=== PATIENT | female | born 1955 | race Caucasian/White ===

== ENCOUNTER 2017-04-08 20:29 | Inpatient (IN) | payer OTHER ==
--- NOTE | ~2017-04-08 | XA203 ---
[facility] A Service of [facility] & [facility] RADIOLOGY TEXT RESULTS PATIENT: CLARENCE JEROME LOCATION: [facility] 304-01 : 55 UNIT #: [id number] AGE: [address]: Fabricio Holcomb MD SEX: F ORDER DR: [id number] [facility] [address] [facility]. [place], [place] [address] [id number] I MR#: [id number] #: [id number] NAME: CLARENCE JEROME : 1955 SEX: F STUDY DATE/TIME: 04/10/2017 8:16 UNIT: [address] ROOM: [facility] STUDY DESCRIPTION: XA Thoracentesis Attending Physician: Fabricio Holcomb M.D. Ordering Physician: Maritza Arambula M.D. Primary Care Physician: Primary Care Physician No MEDICAL IMAGING REPORT This report is preliminary unless electronic signature is present EXAM Ultrasound of the right chest. HISTORY Right pleural effusion. FINDINGS Longitudinal and transverse sonograms of the chest were obtained. Examination did show ascites; however, the patient has an elevated right hemidiaphragm and does not have significant pleural fluid present. CONCLUSION 1. No significant right-sided pleural fluid. 2. Ascites. Dictated by... Trevor Lewis M.D. THIS IS AN ELECTRONICALLY VERIFIED REPORT Trevor Lewis M.D. at 04/10/2017 5:13 PM Andria TD: 04/10/2017 12:22 JOB #: [id number] MEDICAL IMAGING REPORT Page 1 of 1 COPY
--- NOTE | ~2017-04-08 | CO ---
Unit #: [id number] #: [id number] Patient: CLARENCE JEROME [id number] [address] [place], [place] [address] [id number] I MR#: [id number] NAME: CLARENCE JEROME ROOM: 304 Age: 61 Sex: F Admission Date: 04/09/2017 : 1955 Attending Physician: Fabricio Holcomb M.D. CONSULTATION REPORT HISTORY OF PRESENT ILLNESS This is a 59-year-old lady with a history of hypothyroidism, hyperlipidemia, history of coronary artery disease status post NH, had less than 50% obstruction of the stent 3 years ago. The patient is status post heart catheterization. She is now on Plavix. There was nothing to be stented. The patient presents approximately 4 days with worsening dyspnea on exertion. She has been started on IV Rocephin and azithromycin for right lower lobe pneumonia associated with effusion, this is on a plain chest x-ray. I would like to see if we can get Interventional Radiology to do a thoracentesis to drain the fluid completely and then let us get a CT scan of the chest to look for any underlying masses. The patient is continuing to smoke. She denies any significant orthopnea or paroxysmal nocturnal dyspnea and is denying any sort of chest pain or lower extremity edema prior to approximately 2 to 3 days ago. The patient has been placed on supplemental oxygen 4 L of nasal cannula. ALLERGIES The patient is allergic to penicillin. HOME MEDICATIONS Include Plavix 75 mg daily, levothyroxine 100 mcg daily, Lipitor 40 mg daily, isosorbide dinitrate 30 mg daily, and Cardizem 60 mg daily. PAST SURGICAL HISTORY Positive for hysterectomy. PAST MEDICAL HISTORY Significant for hypertension, hyperlipidemia, tobacco use, non ST-elevation NH. SOCIAL HISTORY The patient is , currently employed, smokes about 3 packs cigarettes daily. No alcohol or recreational substance use. 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 FAMILY HISTORY Noncontributory. PHYSICAL EXAMINATION VITAL SIGNS: T-current 98.3, pulse 94, respiratory rate 18, blood pressure 106/58, saturation 94% on 3 L nasal cannula. CHEST: Shows decreased breath sounds bilaterally. Slightly decreased, especially in the right lung base. Unit #: [id number] #: [id number] Patient: CLARENCE JEROME CARDIOVASCULAR: Regular rate. No gallop. ABDOMEN: Soft and nondistended. Worsened significant abdominal tenderness. EXTREMITIES: Lower extremity edema. DIAGNOSTIC STUDIES LABORATORY RESULTS: The procalcitonin is 0.22. Cardiac enzymes are negative x2. BNP is 74. Potassium 3.8, sodium 133, BUN and creatinine 16/0.9, glucose 162. Glucose Accu-Cheks has bumped up to 500. ASSESSMENT/PLAN 1. Pleural effusion. I am concerned there is some sort of a mass underneath this. We are going to ask Interventional Radiology to do a thoracentesis and we are going to get a CT scan to reveal any sort of underlying mass present. 2. Orthopnea, I believe this is due to pleural effusion. 3. Diabetes mellitus. This should be monitored very closely, as the patient's glucoses have been remarkably high this afternoon. Thank you very much for this consult and allowing us to participate in the care of this patient. Please page me at [phone] if you have any questions. Dictated by... Dino Fall/herminia TD: 04/09/2017 23:11 JOB #: [id number] CONSULTATION REPORT Page 1 of 1 X Asher Arambula MD CONSULTATION REPORT
--- NOTE | ~2017-04-08 | DS ---
Unit #: [id number] #: [id number] Patient: CLARENCE JEROME [id number] [address] [address] [id number] I MR#: [id number] NAME: CLARENCE JEROME ROOM: 304 Age: 61 Sex: F Admission Date: 04/09/2017 : 1955 Discharge Date: 04/13/2017 Attending Physician: Fabricio Holcomb M.D. Primary Care Physician: No Primary Care Physician DISCHARGE SUMMARY PRINCIPAL DISCHARGE DIAGNOSES 1. Acute hypoxic respiratory failure. 2. Right lower lobe collapse. 3. Right pleural effusion. 4. Possible postobstructive pneumonia. 5. Acute diastolic congestive heart failure. 6. Right lower lobe lung mass. 7. Multiple liver metastases and right adrenal metastasis. 8. Hypothyroidism. 9. Coronary artery disease. 10. Tobacco use. 11. Pulmonary hypertension. 12. Probable chronic obstructive pulmonary disease. 13. Hypotension. 14. Hyperglycemia. 15. Hyperlipidemia. 16. Moderate mitral regurgitation. PROCEDURE Fiberoptic bronchoscopy on 04/12/17. PROJECT STRUCTURAL ENGINEER Dr. Samano. REASON FOR HOSPITALIZATION Patient is a 61-year-old, white female with a history of coronary artery disease, hyperlipidemia, hypertension, and hypothyroidism who presented to the emergency room with shortness of air and cough. She had no chest pain or fever. She was afebrile in the emergency room and had a normal white count. Cardiac enzymes were normal. BNP was normal. Coags were normal. Random blood sugar was elevated at 167. Lactic acid was normal. Her white count was elevated at 16.2. EKG showed nonspecific ST-T abnormality. Chest x-ray was read as large right pleural effusion with right lower lung consolidation and atelectasis and the patient was admitted. HOSPITAL COURSE The patient was started on IV Solu-Medrol and IV antibiotics. Pulmonary services were consulted. Additional labs were sent. She was placed on Accu-Cheks and sliding scale insulin. She became hypotensive soon after admission. Her antihypertensives were held. She was given IV fluids. Sputum grew normal remi. Urine Legionella and streptococcal antigens were negative. Procalcitonin was 0.22. Hemoglobin A1c was 6.1%. Unit #: [id number] #: [id number] Patient: CLARENCE JEROME Patient was sent to interventional radiology for ultrasound-guided right thoracentesis. There apparently was not enough fluid for the procedure. They noted an elevated right hemidiaphragm and some ascites. Because of this, she had a CT scan of the chest, abdomen, and pelvis. CT scan of the chest showed right perihilar and right lower lobe masses with collapse of the right lower lung, moderate right pleural effusion, multiple liver mets and a right adrenal met, and there were patchy infiltrates as well. Two-dimensional was performed because of symptoms consistent with CHF, which were treated with IV Lasix. It was a technically difficult study. The EF was 50% to 55%. There was some inferior wall hypokinesis, moderate mitral regurgitation, right ventricular systolic pressure was elevated at 53 mmHg. Patient was diuresed well and improved. She underwent bronchoscopy yesterday without incident. I do not have any reports on that yet. This morning, she is on room air. She is sitting up without any symptoms. She is in a sinus rhythm. Her blood sugars have ranged from 81 to 129 over the past 24 hours. Her BMP is normal except for a CO2 of 34, random blood sugar of 120, BUN of 24. White count is 14.1. She is requesting discharge. She will need to be seen by oncology prior to discharge for followup in their office pending results of the fiberoptic bronchoscopy and, if it is negative, she will need to have further evaluation with either a CT-guided FNA of her lung mass or possibly the liver mets. Currently, she is having her room air O2 sat checked prior to discharge. Per the computer, it is 96%, but I cannot tell if this is on room air or not. Dr. Moe or one of his partners is to see her prior to discharge. Otherwise, she will be discharged home if it is okay with Dr. Samano. DISCHARGE INSTRUCTIONS 1. She will be on a healthy heart diet. 2. She is to follow up with her primary care physician, Dr. Salguero, in one week. CURRENT MEDS 1. Combivent Respimat 1 puff q.i.d. p.r.n. 2. Medrol Dosepak use as directed, dispense #1. 3. Tylenol 650 q.6 p.r.n. 4. Furosemide 40 mg p.o. b.i.d. 5. Lipitor 40 mg p.o. daily. 6. Lisinopril 2.5 mg p.o. daily. 7. Plavix 75 mg p.o. daily. 8. Potassium chloride 10 mEq p.o. b.i.d. 9. Levothyroxine 100 mcg daily. 10. Isosorbide mononitrate 30 mg p.o. daily. 11. Z-Caleb use as directed, dispense #1. 12. Omnicef 300 mg p.o. b.i.d. for an additional 6 days. Dictated by... Dino Jordan/stephy TD: 04/14/2017 13:23 JOB #: [id number] Unit #: [id number] #: [id number] Patient: CLARENCE JEROME DISCHARGE SUMMARY Page 1 of 1 X Fabricio Holcomb MD X DISCHARGE SUMMARY
--- NOTE | ~2017-04-08 | CR72 ---
[facility] A Service of [facility] RADIOLOGY TEXT RESULTS PATIENT: CLARENCE JEROME LOCATION: [facility] 304-01 : 55 UNIT #: [id number] AGE: [address]: Fabricio Holcomb MD SEX: F ORDER DR: [id number] [place] [facility]. [place], [place] [address] [id number] I MR#: [id number] Acc #: [id number] NAME: CLARENCE JEROME : 1955 SEX: F STUDY DATE/TIME: 04/12/2017 11:12 UNIT: [address] ROOM: [facility] STUDY DESCRIPTION: CR Chest Single View Portable Attending Physician: Fabricio Holcomb M.D. Ordering Physician: Maritza Arambula M.D. Primary Care Physician: No Primary Care Physician MEDICAL IMAGING REPORT This report is preliminary unless electronic signature is present EXAM Chest portable 04/12/2017 1112 hours CLINICAL HISTORY History of pneumonia and cough, post bronchial biopsy today. COMPARISON Chest CT 04/11/2017. FINDINGS Portable upright chest demonstrates low lung volumes. The cardiac, mediastinal, and hilar contours are stable. There is diffuse bilateral interstitial prominence with persistent soft tissue mass-like opacity in the right medial hilar and infrahilar region. Persistent moderately-large right effusion. There is no pneumothorax. IMPRESSION The lower lung volume film with persistent right perihilar mass-like density and moderate-sized right pleural effusion. There is mild diffuse interstitial prominence. There is no pneumothorax. Dictated by... Rosanne Chowdhury M.D. THIS IS AN ELECTRONICALLY VERIFIED REPORT Rosanne Chowdhury M.D. at 04/12/2017 2:31 PM PEDRO/karyn TD: 04/12/2017 13:29 JOB #: [id number] MEDICAL IMAGING REPORT [facility] A Service of [facility] RADIOLOGY TEXT RESULTS PATIENT: CLARENCE JEROME LOCATION: [facility] 304-01 : [birth year] UNIT #: [id number] AGE: [address]: Fabricio Holcomb MD SEX: F ORDER DR: Page 1 of 1 COPY
--- NOTE | ~2017-04-08 | CR72 ---
[facility] A Service of [facility] & [facility] RADIOLOGY TEXT RESULTS PATIENT: CLARENCE JEROME LOCATION: [facility] 304-01 : 55 UNIT #: [id number] AGE: [address]: Fabricio Holcomb MD SEX: F ORDER DR: [id number] [facility] [address] [facility]. [place], [place] [address] [id number] I MR#: [id number] Acc #: [id number] NAME: CLARENCE JEROME : 1955 SEX: F STUDY DATE/TIME: 04/08/2017 22:00 UNIT: [address] ROOM: [facility] STUDY DESCRIPTION: CR Chest Single View Portable Attending Physician: Fabricio Holcomb M.D. Ordering Physician: Dayton Schwarz D.O. Primary Care Physician: Primary Care Physician No MEDICAL IMAGING REPORT This report is preliminary unless electronic signature is present EXAM AP portable chest, 04/08/2017 HISTORY 61-year-old female in the ED complaining of 2-day history of shortness of air and cough. History of smoking. TECHNIQUE AP portable upright chest x-ray. FINDINGS The examination shows dense opacification of the lower half of the right hemithorax likely due to a combination of pleural effusion, right lung consolidation and right lower lung atelectasis. There is a somewhat bulging contour along the right hilar border which is nonspecific but could indicate hilar region mass or adenopathy. These findings are all new since the previous available chest x-ray of 08/21/2015. Consider chest CT with IV contrast for further evaluation. Left lung clear. IMPRESSION 1. Large right pleural effusion with right lower lung consolidation and atelectasis. 2. Consider chest CT examination for further evaluation as noted above. Dictated by... Russell Simmons M.D. THIS IS AN ELECTRONICALLY VERIFIED REPORT Russell Simmons M.D. at 04/09/2017 9:56 PM Marlo TD: 04/09/2017 08:21 JOB #: [id number] [facility] A Service of [facility] & [facility] RADIOLOGY TEXT RESULTS PATIENT: CLARENCE JEROME [facility] [id number] : [birth year] UNIT #: [id number] AGE: [address]: Fabricio Holcomb MD SEX: F ORDER DR: MEDICAL IMAGING REPORT Page 1 of 1 COPY
--- NOTE | ~2017-04-08 | HP ---
Unit #: [id number] #: [id number] Patient: CLARENCE JEROME [id number] [address] [place], [place] [address] [id number] I MR#: [id number] NAME: CLARENCE JEROME ROOM: 304 Age: 61 Sex: F Admission Date: 04/09/2017 : 1955 Attending Physician: Fabricio Holcomb M.D. Primary Care Physician: No Primary Care Physician HISTORY AND PHYSICAL HISTORY OF PRESENT ILLNESS 61-year-old white female smoker with a history of myocardial infarction, hypothyroidism, hyperlipidemia, admitted with three days of shortness of air and cough, hypoxemia. Apparently her CT scan showed a right lower lobe pneumonia associated with an effusion and possible mass but I don't have any reports handwritten or otherwise in the computer. She has been started on IV Rocephin and Zithromax. She has been allergic and admitted. Currently, she is on supplemental oxygen at 4 L with an O2 sat of 94% to 95%. Her other lab work is fairly unremarkable other than a random elevated blood sugar and white count with a normal lactic acid and cardiac enzymes. Currently, she is resting well. She denies any chest pain or fever at home. Apparently, she is to be Dr. Salguero's patient but has not seen him yet and apparently her insurance has not covered her previous physicians in any case. ALLERGIES Penicillin. MEDICATIONS Meds prior to admission: 1. Plavix 75 mg daily. 2. Levothyroxine 100 mcg daily. 3. Lipitor 40 mg daily. 4. Isosorbide dinitrate 30 mg daily. 5. Lisinopril 2.5 mg daily. 6. Cardizem 60 mg daily. SURGICAL HISTORY Hysterectomy. PAST MEDICAL HISTORY 1. Hypertension. 2. Hyperlipidemia. 3. Tobacco use. 4. Non-ST elevation [place]. SOCIAL HISTORY , employed at a nearby restaurant. Smokes three packs of cigarettes daily. No alcohol or street drug use. FAMILY HISTORY Noncontributory. PHYSICAL EXAMINATION Unit #: [id number] #: [id number] Patient: CLARENCE JEROME GENERAL: She is awake, alert, oriented x3, in no acute distress. VITAL SIGNS: Afebrile since admission with a T max of 99.6, pulse is 83, respirations 16, blood pressure 103/70 which it dropped to 81/54 during the night. Again, her O2 sat was 86% on room air, 92% on 2 L, 94% on 4 L. HEENT: Unremarkable except for nasal cannula in place. NECK: Supple without JVD, bruits, adenopathy or thyromegaly. CHEST: Diffusely decreased breath sounds with a few rhonchi on the right but no expiratory wheezes heard. HEART: Regular rate and rhythm without any murmurs, rubs or gallops. ABDOMEN: Soft, nondistended, nontender with positive bowel sounds and no hepatosplenomegaly. EXTREMITIES: No clubbing, cyanosis or edema. /RECTAL: Deferred. NEUROLOGICAL: Grossly intact. DIAGNOSTIC STUDIES LABORATORY: Cardiac enzymes normal x2 sets. BNP 84. PT/INR 1.1, PTT 32. CMP normal except for a sodium of 133, random blood sugar 167 and albumin 3.1. Lactic acid was normal at 1.7, white count was elevated at 16.2 with a left shift. Hemoglobin is 12.3. Platelets 456,000. On 3.5 L per minute, her pH is 7.461, pCO2 is 39, pAO2 is 62. CARDIOVASCULAR: EKG - normal sinus rhythm, nonspecific ST-T abnormality. IMAGING: Chest x-ray and CT scan - no reports handwritten or in the computer otherwise. IMPRESSION 1. Community-acquired pneumonia with an effusion and a questionable mass. 2. Coronary artery disease. 3. Hyperlipidemia. 4. Hypotension. 5. Tobacco use. 6. Hypothyroidism. 7. Hyperglycemia. PLAN Review CT scan, IV Zithromax and Rocephin. DVT prophylaxis with Lovenox. Hold antihypertensives. Hydrate with normal saline. Accu-Cheks a.c. and h.s. Low dose sliding scale insulin. Mini nebs. Procalcitonin. Urine for Streptococcal and legionella antigen. Sputum gram stain and C and S. Pulmonary consult. Duo-Nebs per unit dose four times daily. Tobacco abstinence discussed with patient. Further evaluation pending results of the above. Dictated by Fabricio Holcomb M.D. SHIVANI/harsh TD: 04/09/2017 08:23 Unit #: [id number] #: [id number] Patient: CLARENCE JEROME JOB #: [id number] HISTORY AND PHYSICAL Page 1 of 1 X Fabricio Holcomb MD X HISTORY AND PHYSICAL
--- NOTE | ~2017-04-08 | CO ---
Unit #: [id number] #: [id number] Patient: CLARENCE JEROME [id number] [address] [place], [place] [address] [id number] I MR#: [id number] NAME: CLARENCE JEROME ROOM: 304 Age: 61 Sex: F Admission Date: 04/09/2017 : 1955 Attending Physician: Fabricio Holocmb M.D. Primary Care Physician: No Primary Care Physician CONSULTATION REPORT REASON FOR CONSULTATION Small cell widespread disease in the liver. HISTORY OF PRESENT ILLNESS This is a 61-year-old female who had been smoking three packs per day for more than 40 years. She has a total [id number] history of smoking. She came due to one-week history of shortness of breath, dyspnea on exertion. Patient also has significant change in her color of the skin. CT of the chest on 04/11/2017 showed a 2.2 cm subcarinal lymph node. There was some right hilar mass. However, patient has widespread disease in the liver. The largest lesion is almost 6.5 cm. Patient had a bronchoscopy. I status spoke to the pathologist. It is a small cell lung cancer. Today she wants to go home. CBC showed WBC 14.0, hemoglobin 12.5, platelets 489. Creatinine is 0.9. Her sodium is 140. REVIEW OF SYSTEMS CONSTITUTIONAL: No fever, no chills, no sweats, no weight loss. EYES: No visual symptoms. EARS, NOSE AND THROAT: There is no runny nose or sore throat or difficulty hearing. CARDIOVASCULAR: No chest pain. No shortness of breath. No palpitations. No orthopnea. No PND. RESPIRATORY: as mentioned above. GASTROINTESTINAL: No nausea, vomiting, diarrhea, constipation, hematochezia or melena. GENITOURINARY: No urinary frequency, hesitancy or urgency. No blood in the urine. MUSCULOSKELETAL: No muscle or joint pain. NEUROLOGIC: No headache. No numbness or tingling. No weakness. No seizure. PSYCHIATRIC: No anxiety, depression or mood disturbance. ENDOCRINE: No excessive urination or thirst. DERMATOLOGIC: No rash. ALLERGIC/IMMUNOLOGIC: No symptoms. HEMATOLOGIC/LYMPHATIC: Denies any symptoms. PAST MEDICAL HISTORY Newly diagnosed small cell lung cancer stage IV, metastatic disease to the Unit #: [id number] #: [id number] Patient: CLARENCE JEROME liver, CT, COPD, hypertension. ALLERGIES Penicillin. SOCIAL HISTORY As mentioned above has more than 120 pack-years of smoking, denies alcohol; used to cook in a restaurant. PAST SURGICAL HISTORY Hysterectomy. FAMILY HISTORY Her father had cancer, daughter also of cancer at a young age. PHYSICAL EXAMINATION VITAL SIGNS: Afebrile, pulse 105, respiratory rate 18, O2 sat on 3 L 98%, blood pressure 102/66. GENERAL: Patient is comfortable. ECOG is 0. The patient is pleasant. HEENT: Moist mucosa. Pupils equally reactive to light. Extraocular muscles intact. Sclerae anicteric. No obvious bleeding from nasal mucosa or oral mucosa. Scalp normal. Hearing normal. NECK: No JVD. No lymphadenopathy. LYMPHATIC/HEMATOLOGIC: There is no palpable adenopathy in the neck, axilla or inguinal area. CARDIOVASCULAR: S1, S2. Regular rate and rhythm. No S3 or S4. RESPIRATORY: Chest symmetrical, normal. Clear to auscultation bilaterally. No wheezes, no rales, no rhonchi. No dullness to percussion. ABDOMEN/GASTROINTESTINAL: Abdomen is soft, nontender, nondistended. No hepatosplenomegaly. EXTREMITIES: There is no clubbing, no cyanosis, no edema. No varicose veins. NEUROLOGICAL: Patient is alert, awake and oriented x3. Cranial nerves II-XII are intact. Sensory grossly intact. Motor is 4/5 in all four extremities. Gait is normal. Station is normal. Language is normal. Memory is normal. DTRs +2 in all four extremities. MUSCULOSKELETAL: No joint swelling. No bony tenderness. No muscle tenderness. SKIN: No petechiae, no rash, no ecchymosis. PSYCHIATRIC: No anxiety. No delusions or hallucinations. There is no agitation. Eye contact is normal. Affect is appropriate. There is no flight of ideas. DIAGNOSTIC STUDIES PATHOLOGY: As mentioned above. IMAGING: CT scan as mentioned above. LABORATORY: Labs as mentioned above. ASSESSMENT This is a 61-year-old female who has a small-cell lung cancer; patient with widespread disease in the liver. DISCUSSION I had an extensive discussion with the patient. I also talked to the pathologist. It is a small cell. Patient wants to go home today. Unit #: [id number] #: [id number] Patient: CLARENCE JEROME I will follow the patient as an outpatient. I will get PET scan as well as MRI of the brain. She is going to see me with her on Sunday. Dictated by... Dino Ratliff/russ TD: 04/13/2017 15:54 JOB #: [id number] CONSULTATION REPORT Page 1 of 1 X Ravi Quinn MD X CONSULTATION REPORT
--- NOTE | ~2017-04-08 | EKG ---
PATIENT: CLARENCE JEROME UNIT #: [id number] Ventricular Rate: 93 BPM Atrial Rate: 93 BPM P-R Interval: 140 ms QRS Duration: 74 ms Q-T Interval: 432 ms QTC Calculation(Bezet): 537 ms P [place]: 62 degrees Calculated R [place]: 85 degrees Calculated T [place]: 65 degrees Diagnosis Line: Normal sinus rhythm Diagnosis Line: Nonspecific T wave abnormality Diagnosis Line: Abnormal ECG Diagnosis Line: When compared with ECG of 22-AUG-2015 07:11, Diagnosis Line: Nonspecific T wave abnormality now evident in Diagnosis Line: Inferior leads Diagnosis Line: Nonspecific T wave abnormality now evident in Diagnosis Line: Anterolateral leads Diagnosis Line: QT has lengthened Diagnosis Line: Confirmed by BAHMAN DILLON MD ([id number]) on Diagnosis Line: 04/09/2017 10:41:47 PM INTERPRETING MD: KENDELL
--- NOTE | ~2017-04-08 | CT57 ---
[facility] A Service of [facility] & [facility] RADIOLOGY TEXT RESULTS PATIENT: CLARENCE JEROME LOCATION: [facility] 304-01 : 55 UNIT #: [id number] AGE: [address]: Fabricio Holcomb MD SEX: F ORDER DR: [id number] [facility] [address] [facility]. [place], [place] [address] [id number] I MR#: [id number] Acc #: [id number] NAME: CLARENCE JEROME : 1955 SEX: F STUDY DATE/TIME: 04/11/2017 10:09 UNIT: [address] ROOM: 304 STUDY DESCRIPTION: CT Chest Wo Cont Attending Physician: Fabricio Holocmb M.D. Ordering Physician: Maritza Arambula M.D. Primary Care Physician: No Primary Care Physician MEDICAL IMAGING REPORT This report is preliminary unless electronic signature is present EXAM CT chest without contrast. HISTORY Cough and shortness of air for [address] exam was performed with one or more of the following radiation dose reduction techniques: automatic exposure control, adjustment of mA and/or kV according to patient size, and iterative reconstruction. FINDINGS CT chest without contrast demonstrates a moderately large right pleural effusion, likely containing debris. Indistinct mixed density, partly hypodense mass is suspected along the right hilum and in the right lower lobe, evaluation which is limited by the lack of IV contrast and due to complete atelectasis of the right lower lobe and partial right perihilar atelectasis, as well. Adenopathy in the subcarinal space extending to the azygoesophageal recess, measuring approximate 2.2 cm. Low-density hepatic masses, measuring 7.3 cm at the junction of the medial and lateral segments, left hepatic lobe, 1.8 cm and 1.8 cm in the left hepatic lobe, and 2 cm in the superolateral right hepatic lobe. Right adrenal enlargement measuring 3 cm x 2.1 cm. Findings are concerning for hepatic and right adrenal metastases. The findings in the right lung and mediastinum are concerning for right lung carcinoma with metastatic adenopathy. Consider bronchoscopy for further evaluation. Subsegmental infiltrates and atelectasis in both lungs, greater in the anterior and superior left upper lobe. IMPRESSION 1. Findings are concerning for metastatic disease in the chest and upper abdomen. Indistinct probable low-density right perihilar and right lower lobe masses raising concern for right lung carcinoma, STS. [facility] A Service of [facility] & [facility] RADIOLOGY TEXT RESULTS PATIENT: CLARENCE JEROME LOCATION: [facility] 304-01 : 55 UNIT #: [id number] AGE: [address]: Fabricio Holcomb MD SEX: F ORDER DR: evaluation of which is limited by complete atelectasis of the right lower lobe and lack of IV contrast. Subtle probable hypodense mass or adenopathy adjacent to the right hilum and in the right lower lobe. Consider further evaluation with bronchoscopy. 2. Moderately large right pleural effusion and small left pleural effusion. 3. Subcarinal adenopathy, multiple hepatic masses measuring up to 7.3 cm, and right adrenal enlargement measuring up to 3.0 cm, are concerning for meggan, hepatic and right adrenal metastases. 4. Small left pleural effusion. 5. Patchy multifocal bilateral subsegmental atelectasis or infiltrates in both lungs. Dictated by... Aman Rader M.D. THIS IS AN ELECTRONICALLY VERIFIED REPORT Aman Rader M.D. at 04/11/2017 5:30 PM HENRI/tammi TD: 04/11/2017 16:57 JOB #: [id number] MEDICAL IMAGING REPORT Page 1 of 1 COPY
--- NOTE | ~2017-04-08 | OR ---
Unit #: [id number] #: [id number] Patient: CLARENCE JEROME [id number] [address] [place], [place] [address] [id number] I MR#: [id number] NAME: CLARENCE JEROME ROOM: 304 Date of Procedure: 04/12/2017 Admission Date: 04/09/2017 Surgeon: Maritza Arambula M.D. : 1955 Attending Physician: Fabricio Holcomb M.D. Primary Care Physician: Primary Care Physician No OPERATIVE REPORT PROCEDURE PERFORMED Bronchoscopy, bronchial wash, endobronchial biopsies. ANESTHESIA Per anesthesiology. DESCRIPTION OF PROCEDURE After obtaining informed consent, bronchoscope was passed oropharyngeally. 2% Xylocaine, 1% Xylocaine, and benzocaine spray were used in the posterior oropharynx. The vocal cords seemed to have some irritation and ulceration, they moved midline symmetrically. The patient had some transient hypoxia, which resolved. Bronchoscope was then passed into the trachea. The left side was briefly seen and there was no evidence of any endobronchial lesions in the left lingular, left upper, left lower lobe. The right upper lobe did show changes of severe acute bronchitis; however, there were no endobronchial lesions. The right middle and right lower lobes showed evidence of endobronchial infiltration. There was a mass in the right lower lobe with significant edema, erythema, swelling, neovascularization of the airways. Biopsies were taken of this tissue x4. There was oozing present. Estimated blood loss was minimal. However, fluoro was used to make sure that we were still endobronchial when I do a transbronchial biopsy. The patient tolerated the procedure well. There were no acute complications. There were no limitations. SAMPLES Endobronchial biopsies as well as some bronchial washing. Thank you very much. Please page me at [phone] if you have any questions. Dictated by... Dino Fall/herminia TD: 04/13/2017 02:02 JOB #: [id number] Unit #: [id number] #: [id number] Patient: CLARENCE JEROME OPERATIVE REPORT Page 1 of 1 X Asher Arambula MD PROCEDURE OPERATIVE NOTE
--- NOTE | ~2017-04-08 | CT2 ---
[facility] A Service of [facility] RADIOLOGY TEXT RESULTS PATIENT: CLARENCE JEROME LOCATION: [facility] 304-01 : 55 UNIT #: [id number] AGE: [address]: Fabricio Holcomb MD SEX: F ORDER DR: [id number] [id number] [facility]. [place], [place] [address] [id number] I MR#: [id number] Acc #: [id number] NAME: CLARENCE JEROME : 1955 SEX: F STUDY DATE/TIME: 04/11/2017 7:27 UNIT: [address] ROOM: [facility] STUDY DESCRIPTION: CT Abd and Pelv W Cont Attending Physician: Fabricio Holcomb M.D. Ordering Physician: Fabricio Holcomb M.D. Primary Care Physician: No Primary Care Physician MEDICAL IMAGING REPORT This report is preliminary unless electronic signature is present EXAM CT abdomen and pelvis with contrast. INDICATION Shortness of air and cough since April 08, 2017. Abdominal ascites and generalized abdominal pain since 04/08/17. PROCEDURE Contrast-enhanced CT of the abdomen and pelvis. This CT exam was performed with one or more of the following radiation dose reduction techniques: automatic exposure control, adjustment of mA and/or kV according to patient size, and iterative reconstruction. COMPARISON None. FINDINGS Refer to the separately dictated chest CT for thoracic findings. ABDOMEN WITH CONTRAST: There are a few hepatic metastases in the liver, the largest is at the junction of segments 2 and 4A, and measures up to 6.5 cm. The spleen, kidneys, right adrenal enlargement measuring 4.0 x 1.8 cm. Unremarkable pancreas. There is a 2.3 cm stone in the gallbladder, but no evidence for inflammation. A few mildly prominent gastroesophageal lymph nodes. Moderate to moderately large colonic stool burden. Uncomplicated sigmoid diverticula. No retroperitoneal adenopathy. PELVIS WITH CONTRAST: Small amount of fluid in the pelvis. Previous hysterectomy. No aggressive-appearing bone lesion. IMPRESSION [facility] A Service of [facility] RADIOLOGY TEXT RESULTS PATIENT: CLARENCE JEROME LOCATION: [facility] 304-01 : 55 UNIT #: [id number] AGE: [address]: Fabricio Holcomb MD SEX: F ORDER DR: Refer to the separately dictated chest CT for thoracic findings including details regarding the partially included right hilar and infrahilar mass. Metastatic disease in the liver with the largest lesion measuring up to 6.5 cm. Right adrenal metastasis. Other findings as above. Dictated by... Sean Owen M.D. THIS IS AN ELECTRONICALLY VERIFIED REPORT Sean Owen M.D. at 04/12/2017 2:17 PM JULES/josr TD: 04/11/2017 17:25 JOB #: [id number] MEDICAL IMAGING REPORT Page 1 of 1 COPY
[~2017-04-08 20:29] MED LIST: ACETAMINOPHEN PR; ASPIRIN81 M2 PO; CARDIZEM60 M1 PO; ISOSORBIDE DINI30 MG PO; LIPITOR40 MG DOB; LORTAB 5/500 TA1 TA1 PO; NICODERM C1 PATCH .1 TD; NITROGLYCERIN0.4 MG SL; NO MEDICATIONS; PLAVIX PO; PREDNISONE PO; PRINIVIL20 M1 PO; ROBAXIN500 MG PO; SYNTHROID75 MCG PO
[2017-04-08 21:42] LABS: POC - CKMB 1.2 ng/mL (0.0-7.9); POC - TROPONIN <0.05 ng/mL (<=0.05)
[2017-04-08 21:59] LABS: ARTERIAL BLD GAS O2 SATURATION 93.1 % (90.0-100.0); ARTERIAL BLOOD GAS ALLEN TEST NORMAL; ARTERIAL BLOOD GAS ART SITE RIGHT RADIAL; ARTERIAL BLOOD GAS CARBOXY HB 5.4 %sat (0.0-9.0); ARTERIAL BLOOD GAS DELIVERY NASAL CANNULA; ARTERIAL BLOOD GAS LITER FLOW 3.5; ARTERIAL BLOOD GAS MET HB 1.1 %sat (0.0-2.0); ARTERIAL BLOOD GAS PCO2 39.3 mmHg (35.0-45.0); ARTERIAL BLOOD GAS PO2 62.1 mmHg (80.0-100); ARTERIAL BLOOD GAS pH 7.461 (7.350-7.450); ARTERIAL DRAW? YES
[2017-04-08 22:13] LABS: BASOPHIL# 0.1 X10e3 (0-0.3); BASOPHIL% 0.7 % (0-2.5); EOSINOPHIL% 0.1 % (0.0-7.0); HEMATOCRIT 37.6 % (35.0-45.0); HEMOGLOBIN 12.3 gm/dL (12.0-16.0); LYMPHOCYTE# 1.2 X10e3 (1.0-3.5); LYMPHOCYTE% 7.1 % (17.0-45.0); MEAN CELL VOLUME 85.8 FL (83-96); MEAN CORPUSCULAR HEMOGLOBIN 28.1 PG (28-34); MEAN CORPUSCULAR HGB CONC 32.8 g/dL (30-36); MEAN PLATELET VOLUME 8.1 FL (6.5-11.5); MONOCYTE# 1.2 X10e3 (0-1.0); MONOCYTE% 7.6 % (3.0-12.0); NEUTROPHIL# 13.7 X10e3 (1.5-7.1); NEUTROPHIL% 84.5 % (40-75); PLATELET COUNT 456 X10e3 (140-420); RED BLOOD COUNT 4.39 X10e (3.90-5.30); RED CELL DISTRIBUTION WIDTH 16.8 % (11.0-15.5); WHITE BLOOD COUNT 16.2 X10e3 (4.0-10.5)
[2017-04-08 22:16] LABS: DIFF IND YES
[2017-04-08 22:34] LABS: PLATELET ESTIMATE INCREASED (NORMAL)
[2017-04-08 22:35] LABS: ANISOCYTOSIS MOD
[2017-04-09 01:21] LABS: ALBUMIN SERUM 3.1 g/dL (3.5-5.0); BILIRUBIN, DIRECT 0.2 mg/dL (0.0-0.2); BILIRUBIN,INDIRECT 0.7 mg/dL (0.0-0.9); BILIRUBIN,TOTAL 0.9 mg/dL (0.2-2.0); BUN/CREATININE RATIO 17.77; CALCIUM SERUM 8.4 mg/dL (8.4-10.2); CREATININE SERUM 0.9 mg/dL (0.6-1.4); GLOM FILT RATE Estimated 69.1 mL/min (>60); POTASSIUM 3.8 mmol/L (3.5-5.1); PROTEIN TOTAL SERUM 7.9 g/dL (6.0-8.3)
[2017-04-09 01:26] LABS: INR 1.1; PROTHROMBIN TIME (PATIENT) 11.8 SECONDS (9.6-11.5)
[2017-04-09] MEDS ORDERED: CLOPIDOGREL75 MG PO (01:55)
[2017-04-09] MEDS ORDERED: LISINOPRIL2.5 MG PO (01:56)
[2017-04-09] MEDS ORDERED: LIPITOR40 MG PO (01:56)
[2017-04-09] MEDS ORDERED: LEVOTHYROXINE100 MC1 PO (01:56)
[2017-04-09] MEDS ORDERED: ISOSORBIDE DINI30 MG PO (01:56)
[2017-04-09] MEDS ORDERED: CARDIZEM60 MG PO (01:57)
[2017-04-09 02:18] LABS: POC - CKMB <1.0 ng/mL (0.0-7.9); POC - TROPONIN <0.05 ng/mL (<=0.05)
[2017-04-10 05:04] LABS: HEMATOCRIT 32.3 % (35.0-45.0); HEMOGLOBIN 10.2 gm/dL (12.0-16.0); MEAN CELL VOLUME 86.5 FL (83-96); MEAN CORPUSCULAR HEMOGLOBIN 27.3 PG (28-34); MEAN CORPUSCULAR HGB CONC 31.6 g/dL (30-36); MEAN PLATELET VOLUME 7.4 FL (6.5-11.5); RED BLOOD COUNT 3.74 X10e (3.90-5.30); RED CELL DISTRIBUTION WIDTH 17.1 % (11.0-15.5); WHITE BLOOD COUNT 18.7 X10e3 (4.0-10.5)
[2017-04-10 06:01] LABS: LEGIONELLA AG URINE NEG (NEG)
[2017-04-10 06:04] LABS: BUN/CREATININE RATIO 17.14; CALCIUM SERUM 8.1 mg/dL (8.4-10.2); CREATININE SERUM 0.7 mg/dL (0.6-1.4); GLOM FILT RATE Estimated 93.5 mL/min (>60); POTASSIUM 4.1 mmol/L (3.5-5.1)
[2017-04-11 05:57] LABS: HEMATOCRIT 32.9 % (35.0-45.0); HEMOGLOBIN 10.7 gm/dL (12.0-16.0); MEAN CELL VOLUME 86.4 FL (83-96); MEAN CORPUSCULAR HGB CONC 32.4 g/dL (30-36); MEAN PLATELET VOLUME 7.2 FL (6.5-11.5); RED BLOOD COUNT 3.81 X10e (3.90-5.30); RED CELL DISTRIBUTION WIDTH 16.9 % (11.0-15.5); WHITE BLOOD COUNT 17.3 X10e3 (4.0-10.5)
[2017-04-11 07:53] LABS: THYROID STIMULATING HORMONE 19.11 uIU/ml (0.34-5.60)
[2017-04-11 08:00] LABS: FREE THYROXIN (T4) 0.24 ng/dL (0.58-1.64)
[2017-04-12 05:42] LABS: HEMOGLOBIN 11.5 gm/dL (12.0-16.0); MEAN CELL VOLUME 85.5 FL (83-96); MEAN CORPUSCULAR HEMOGLOBIN 27.2 PG (28-34); MEAN CORPUSCULAR HGB CONC 31.9 g/dL (30-36); MEAN PLATELET VOLUME 7.2 FL (6.5-11.5); RED BLOOD COUNT 4.21 X10e (3.90-5.30); RED CELL DISTRIBUTION WIDTH 16.4 % (11.0-15.5); WHITE BLOOD COUNT 13.6 X10e3 (4.0-10.5)
[2017-04-12 06:12] LABS: PARTIAL THROMBOPLASTIN TIME 26.1 SECONDS (23.5-31.3); PROTHROMBIN TIME (PATIENT) 10.5 SECONDS (9.6-11.5)
[2017-04-12 09:12] LABS: BUN/CREATININE RATIO 23.75; CALCIUM SERUM 8.2 mg/dL (8.4-10.2); CREATININE SERUM 0.8 mg/dL (0.6-1.4); GLOM FILT RATE Estimated 79.6 mL/min (>60); MAGNESIUM 2.2 mg/dL (1.6-3.0)
[2017-04-13 05:46] LABS: HEMATOCRIT 39.4 % (35.0-45.0); HEMOGLOBIN 12.5 gm/dL (12.0-16.0); MEAN CELL VOLUME 86.1 FL (83-96); MEAN CORPUSCULAR HEMOGLOBIN 27.4 PG (28-34); MEAN CORPUSCULAR HGB CONC 31.9 g/dL (30-36); MEAN PLATELET VOLUME 7.5 FL (6.5-11.5); RED BLOOD COUNT 4.57 X10e (3.90-5.30); RED CELL DISTRIBUTION WIDTH 16.4 % (11.0-15.5); WHITE BLOOD COUNT 14.1 X10e3 (4.0-10.5)
[2017-04-13 06:05] LABS: BUN/CREATININE RATIO 26.66; CALCIUM SERUM 8.5 mg/dL (8.4-10.2); CREATININE SERUM 0.9 mg/dL (0.6-1.4); GLOM FILT RATE Estimated 69.1 mL/min (>60); POTASSIUM 4.4 mmol/L (3.5-5.1)
[2017-04-13] MEDS ORDERED: COMBIVENT RESPIM4 GM INH (07:33)
[2017-04-13] MEDS ORDERED: ACETAMINOPHEN650 M4 PO (07:35)
[2017-04-13] MEDS ORDERED: LASIX PO (07:37)
[2017-04-13] MEDS ORDERED: K-DUR10 MEQ PO (07:42)
[2017-04-13] MEDS ORDERED: Z-PACK (07:45)
[2017-04-13] MEDS ORDERED: OMNICEF PO (07:45)
[2017-04-13] MEDS ORDERED: LEVOTHYROXINE100 MCG PO (07:46)
== END 2017-04-13 14:43 | disposition home or self-care (01) | DRG 166 ==
LOC: CED 20:29 → CEDOF 04-09 00:30 → C3A PCU 04-09 00:30 → CED 04-09 02:01 → CEDOF 04-09 02:01 → C3A PCU 04-09 07:45
PROVIDERS: Emergency Medicine; Internal Medicine; Internal Medicine Pulmonary Disease
PROC: 0BBF8ZX Excision of Right Lower Lung Lobe, Via Natural or Artificial Opening Endoscopic, Diagnostic (ICD-10-PCS; principal; 2017-04-12 10:30)
DX: J96.01 Acute respiratory failure with hypoxia (principal); I50.31 Acute diastolic (congestive) heart failure; J18.9 Pneumonia, unspecified organism; C78.7 Secondary malignant neoplasm of liver and intrahepatic bile duct; C79.71 Secondary malignant neoplasm of right adrenal gland; I95.9 Hypotension, unspecified; I11.0 Hypertensive heart disease with heart failure; J44.0 Chronic obstructive pulmonary disease with (acute) lower respiratory infection; R18.8 Other ascites; J20.9 Acute bronchitis, unspecified; R91.8 Other nonspecific abnormal finding of lung field; E03.9 Hypothyroidism, unspecified; Z88.0 Allergy status to penicillin; I10 Essential (primary) hypertension; I27.2 Other secondary pulmonary hypertension; F17.210 Nicotine dependence, cigarettes, uncomplicated; I34.0 Nonrheumatic mitral (valve) insufficiency; E78.5 Hyperlipidemia, unspecified; E11.65 Type 2 diabetes mellitus with hyperglycemia; I25.10 Atherosclerotic heart disease of native coronary artery without angina pectoris; Z95.5 Presence of coronary angioplasty implant and graft
CPT/HCPCS: 36415; 36600; 71010; 71250; 74177; 76000; 80048; 80076; 82308; 82553; 82803; 82947; 83036; 83605; 83735; 83880; 84439; 84443; 84484; 85025; 85027; 85610; 85730; 87040; 87070; 87102; 87106; 87116; 87205; 87206; 87449; 87899; 88108; 88305; 93005; 93306; 94640; 94760; 96374; 99285; J0171; J0456; J0696; J1650; J1815; J1940; J2250; J2920; J2930; Q9967

== ENCOUNTER → 2017-04-19 | Outpatient (CLI) | payer OTHER ==
[~2017-04-19] MED LIST changes: +ACETAMINOPHEN650 M4 PO; +CARDIZEM60 MG PO; +CLOPIDOGREL75 MG PO; +COMBIVENT RESPIM4 GM INH; +K-DUR10 MEQ PO; +LASIX PO; +LEVOTHYROXINE100 MC1 PO; +LEVOTHYROXINE100 MCG PO; +LIPITOR40 MG PO; +LISINOPRIL2.5 MG PO; +OMNICEF PO; +Z-PACK
--- NOTE | ~2017-04-19 | MR17 ---
[facility] A Service of [facility] & [facility] RADIOLOGY TEXT RESULTS PATIENT: CLARENCE JEROME LOCATION: [facility] : 55 UNIT #: [id number] AGE: [address]: Ravi Quinn MD SEX: F ORDER DR: [id number] [address] [address] [id number] P MR#: [id number] Acc #: [id number] NAME: CLARENCE JEROME : 1955 SEX: F STUDY DATE/TIME: 04/19/2017 14:41 UNIT: [facility] ROOM: STUDY DESCRIPTION: MR Brain WWo Contrast Attending Physician: Ravi Quinn M.D. Ordering Physician: Ravi Quinn M.D. Primary Care Physician: Primary Care Physician No MRI CENTER REPORT This report is preliminary unless electronic signature is present. EXAM Brain MRI with and without contrast HISTORY Newly diagnosed lung cancer. Headaches of recent onset. Evaluate for brain malignancy suspected. TECHNIQUE Multiplanar imaging of the brain was performed with and without contrast. 13 mL of MultiHance was used. FINDINGS On diffusion weighted imaging, there is no evidence of recent infarct. The routine brain images show mild chronic ischemic changes in the periventricular deep white matter bilaterally. There is no significant vasogenic edema seen. Postcontrast imaging shows 3 small enhancing lesions strongly suspicious for metastatic disease in the posterior fossa. There is a 4 mm lesion in the inferior aspect of the left cerebellar tonsil, there is a 9 mm enhancing lesion in the right inferior cerebellum and there is a 3 mm enhancing lesion in the right superior cerebellum adjacent to midline. There is an additional small focus of enhancement measuring 2-3 mm in diameter in the right frontal subcortex adjacent to the falx. All of these lesions are consistent with metastasis. No hemorrhages are seen. Extraaxial structures are unremarkable. IMPRESSION 1. There are 4 enhancing lesions strongly suspicious for metastatic disease. The largest of which is in the right cerebellum measuring 8-9 mm in diameter. Three out of the 4 lesions are in the cerebellum. 2. Mild chronic ischemic changes around the ventricles bilaterally. STS. [facility] A Service of [facility] & [facility] RADIOLOGY TEXT RESULTS PATIENT: CLARENCE JEROME LOCATION: [facility] : 55 UNIT #: [id number] AGE: [address]: Ravi Quinn MD SEX: F ORDER DR: Dictated by... Cheikh Torres M.D. THIS IS AN ELECTRONICALLY VERIFIED REPORT Cheikh Torres M.D. at 04/20/2017 3:52 PM ROSA/margareth TD: 04/20/2017 10:39 JOB #: [id number] MRI CENTER REPORT Page 1 of 1
== END | disposition home or self-care (01) ==
LOC: SMRI 07:32
DX: C34.01 Malignant neoplasm of right main bronchus (principal); G93.9 Disorder of brain, unspecified
CPT/HCPCS: 70553; A9581

== ENCOUNTER → 2017-04-27 | Outpatient (CLI) | payer OTHER ==
[2017-04-27 07:23] LABS: HEMATOCRIT 39.9 % (35.0-45.0); HEMOGLOBIN 12.9 gm/dL (12.0-16.0); MEAN CELL VOLUME 86.8 FL (83-96); MEAN CORPUSCULAR HEMOGLOBIN 28.2 PG (28-34); MEAN CORPUSCULAR HGB CONC 32.5 g/dL (30-36); MEAN PLATELET VOLUME 6.9 FL (6.5-11.5); RED BLOOD COUNT 4.59 X10e (3.90-5.30); RED CELL DISTRIBUTION WIDTH 17.3 % (11.0-15.5); WHITE BLOOD COUNT 10.6 X10e3 (4.0-10.5)
[2017-04-27 07:43] LABS: PARTIAL THROMBOPLASTIN TIME 32.5 SECONDS (23.5-31.3); PROTHROMBIN TIME (PATIENT) 10.5 SECONDS (10.0-11.7)
== END | disposition home or self-care (01) ==
LOC: CIVR 06:50
PROVIDERS: Internal Medicine Hematology
DX: C34.01 Malignant neoplasm of right main bronchus (principal)
CPT/HCPCS: 36415; 85027; 85610; 85730; J1642; J2250; J3010

== ENCOUNTER → 2017-05-04 | Outpatient (CLI) | payer OTHER ==
--- NOTE | ~2017-05-04 | XA91 ---
[facility] A Service of [facility] & [facility] RADIOLOGY TEXT RESULTS PATIENT: CLARENCE JEROME LOCATION: [facility] : 55 UNIT #: [id number] AGE: [address]: Ravi Quinn MD SEX: F ORDER DR: [id number] [facility] [address] [facility]. [place], [place] [address] [id number] O MR#: [id number] Acc #: [id number] NAME: CLARENCE JEROME : 1955 SEX: F STUDY DATE/TIME: 05/04/2017 10:28 UNIT: [facility] ROOM: STUDY DESCRIPTION: XA CVC Tunneled W Port Attending Physician: Ravi Quinn M.D. Referring Physician: Ravi Quinn M.D. Ordering Physician: Ravi Quinn M.D. Primary Care Physician: Cheikh Salguero M.D. MEDICAL IMAGING REPORT This report is preliminary unless electronic signature is present EXAM MediPort placement INDICATION Metastatic lung cancer. PROCEDURE The procedure was explained to the patient including risks, benefits, potential complications, and potential for alternatives forms of treatment. Informed consent was obtained and prior to initiating the procedure, a formal time-out procedure was performed. Using all elements of maximal sterile barrier technique including hand hygiene, caps, sterile gowns, gloves, and masks, the right neck and chest were prepped with 2% Chlorhexidine for cutaneous antisepsis, with a large sterile sheet. Ultrasound probe was covered with the sterile probe cover and sterile gel was applied. Real-time sterile ultrasound guidance was used to localize the right internal jugular vein which was found to be patent and compressible. A hard copy ultrasound image was obtained after local anesthesia with 1% lidocaine the vein was punctured using real-time sterile ultrasound guidance and an 0.018 guidewire was advanced through the superior vena cava under fluoroscopic guidance. Micropuncture sheath was placed and a J-wire was advanced into the inferior vena cava. Skin and subcutaneous tissues of the right anterolateral chest wall were anesthetized with lidocaine and lidocaine with epinephrine. A small skin suture was made. A port pocket was created using a combination of blunt and sharp dissection and the port was seated within the pockets using two 3-0 Vicryl sutures. The catheter was then tunneled up through the right anterolateral chest wall to the insertion site at the neck. A peel-away sheath was advanced over the wire. Catheter was measured and trimmed and was advanced through the peel-away sheath in position within the superior vena cava. Following placement of the catheter, it flushed and aspirated easily. Deep layer of the port pocket was closed using an interrupted 3-0 STS. [facility] A Service of [facility] RADIOLOGY TEXT RESULTS PATIENT: CLARENCE JEROME LOCATION: [facility] : 55 UNIT #: [id number] AGE: [address]: Ravi Quinn MD SEX: F ORDER DR: Vicryl sutures and a running 4-0 Monocryl suture was used close the skin. A single 4-0 Monocryl suture was used to close the insertion site of the neck and Dermabond was applied to both wounds to act as a dressing. Total fluoroscopy time was 0.2 minutes. AK was 2 mGy. The patient did receive moderate sedation consisting of 0.79 mg of Versed and 25 mcg of Fentanyl, I supervised the IVR nurse and monitored the patient's vital signs for a total of 25 minutes [id number] time. IMPRESSION Technically successful right internal jugular vein MediPort placement. Ultrasound and fluoroscopy were used during placement of this catheter and permanent images were saved. Dictated by... Gayatri Segundo M.D. THIS IS AN ELECTRONICALLY VERIFIED REPORT Gayatri Segundo M.D. at 05/07/2017 5:21 PM AFF/aa TD: 05/07/2017 15:50 JOB #: [id number] MEDICAL IMAGING REPORT Page 1 of 1 COPY
[2017-05-04 07:46] LABS: HEMATOCRIT 40.9 % (35.0-45.0); MEAN CELL VOLUME 87.7 FL (83-96); MEAN CORPUSCULAR HGB CONC 31.9 g/dL (30-36); RED BLOOD COUNT 4.66 X10e (3.90-5.30); RED CELL DISTRIBUTION WIDTH 17.6 % (11.0-15.5); WHITE BLOOD COUNT 9.7 X10e3 (4.0-10.5)
[2017-05-04 08:03] LABS: PARTIAL THROMBOPLASTIN TIME 28.1 SECONDS (23.5-31.3); PROTHROMBIN TIME (PATIENT) 10.4 SECONDS (10.0-11.7)
== END | disposition home or self-care (01) ==
LOC: CLAB 07:06 → CIVR 09:00
PROVIDERS: Internal Medicine Hematology
DX: C34.01 Malignant neoplasm of right main bronchus (principal); Z88.0 Allergy status to penicillin; Z79.02 Long term (current) use of antithrombotics/antiplatelets; Z79.899 Other long term (current) drug therapy
CPT/HCPCS: 36415; 76937; 77001; 85027; 85610; 85730; C1788; C1894; J1642; J2250; J3010

== ENCOUNTER → 2017-07-06 | Outpatient (CLI) | payer OTHER ==
[2017-07-06 18:01] LABS: POC - CREATININE 1.22 mg/dL (0.44-1.03)
== END | disposition home or self-care (01) ==
LOC: CCAT 13:15
PROVIDERS: Internal Medicine Hematology
DX: C34.01 Malignant neoplasm of right main bronchus (principal); Z53.9 Procedure and treatment not carried out, unspecified reason
CPT/HCPCS: 82565

== ENCOUNTER → 2017-07-10 | Outpatient (CLI) | payer OTHER ==
--- NOTE | ~2017-07-10 | CT2 ---
[facility] A Service of [facility] & [facility] RADIOLOGY TEXT RESULTS PATIENT: CLARENCE JEROME LOCATION: [facility] : 55 UNIT #: [id number] AGE: [address]: Ravi Quinn MD SEX: F ORDER DR: [id number] [facility] [address]. [place], [place] [address] [id number] O MR#: [id number] Acc #: [id number] NAME: CLARENCE JEROME : 1955 SEX: F STUDY DATE/TIME: 07/10/2017 12:05 UNIT: [facility] ROOM: STUDY DESCRIPTION: CT Abd and Pelv W Cont Attending Physician: Ravi Quinn M.D. Referring Physician: Ravi Quinn M.D. Ordering Physician: Ravi Quinn M.D. Primary Care Physician: Cheikh Salguero M.D. MEDICAL IMAGING REPORT This report is preliminary unless electronic signature is present EXAM CT abdomen and pelvis INDICATIONS 61-year-old female followup lung cancer. Right lower lung malignancy. COMPARISON CT chest 04/11/2017, PET CT 04/20/2017 TECHNIQUE Axial images were performed through the abdomen and pelvis following IV contrast. Multiplanar reconstructed images reviewed at a workstation. This CT exam was performed with one or more of the following radiation dose reduction techniques: automatic exposure control, adjustment of mA and/or kV according to patient size, and iterative reconstruction. FINDINGS Abdomen: There is a azgrvzax-vs-qrlmg right pleural effusion layering to a depth of at least 2.5 cm. There is a large centrally obstructing mass right lower lobe right infrahilar region. The mass measures at least a 6.4 x 7.2 cm and partially encases the right inferior pulmonary veins and produces mass effect on the left atrium. It is unclear whether there is intravascular extension but imaging features are highly concerning for intravascular extension. There is a large amount of postobstructive atelectasis. Visualized left lung unremarkable except for lingular atelectasis. The liver demonstrates a large mass in the anterior liver just anterior to the IVC measuring about 5.7 x 4.6 cm. This is most compatible with metastatic disease and may be slightly improved from the April study. There are additional smaller peripheral lesions throughout the liver, numbering at least 6-7, though I suspect there are more lesions and these all measure about a centimeter or less but are highly concerning for widely disseminated liver metastases. There is marked enlargement of right adrenal gland measuring 1.5 x 4.8 cm compatible with metastatic STS. [facility] A Service of [facility] RADIOLOGY TEXT RESULTS PATIENT: CLARENCE JEROME LOCATION: [facility] : 55 UNIT #: [id number] AGE: [address]: Ravi Quinn MD SEX: F ORDER DR: lesion. There is a new 1.9 x 2.5 cm left adrenal lesion, consistent with metastatic disease. There is uncomplicated cholelithiasis. The spleen appears normal. Pancreas and kidneys unremarkable. Visualized GI tract unremarkable except for moderate amount of colonic stool. Sigmoid diverticular changes. Retroperitoneum unremarkable. Pelvis: Bladder unremarkable. The uterus surgically absent. Osseous structures show mild degenerative changes lumbar spine but no obvious osseous metastatic disease. IMPRESSION 1. Large right infrahilar right lower lobe lung mass measuring approximately 6.4 x 7.2 x at least 5.3 cm. This may be minimally improved when compared to the April study. There is a significant mass effect on the left atrium and concern is raised for possible intravascular extension. Large amount associated postobstructive atelectasis and a moderate right pleural effusion. 2. Widely disseminated metastases with bilateral adrenal metastases, diffuse liver metastases. The large central liver lesion does appear to be improved when compared to April, but the smaller peripheral metastases appear more prominent possibly related to improved technique. Dictated by... Acacia Christiansen M.D. THIS IS AN ELECTRONICALLY VERIFIED REPORT Acacia Christiansen M.D. at 07/12/2017 7:54 AM ANAT/serenity TD: 07/11/2017 19:36 JOB #: [id number] MEDICAL IMAGING REPORT Page 1 of 1 COPY
--- NOTE | ~2017-07-10 | CT55 ---
[facility] A Service of [facility] RADIOLOGY TEXT RESULTS PATIENT: CLARENCE JEROME [facility] UNIT #: [id number] AGE: [address]: Ravi Quinn MD SEX: F ORDER DR: [id number] [facility] [address] [place], [place] [address] [id number] O MR#: [id number] #: [id number] NAME: CLARENCE JEROME : 1955 SEX: F STUDY DATE/TIME: 07/10/2017 12:05 UNIT: [facility] ROOM: STUDY DESCRIPTION: CT Chest W Con Attending Physician: Ravi Quinn M.D. Referring Physician: Ravi Quinn M.D. Ordering Physician: Ravi Quinn M.D. Primary Care Physician: Cheikh Salguero M.D. MEDICAL IMAGING REPORT This report is preliminary unless electronic signature is present EXAM Chest CT, 07/10/2017. INDICATIONS Lung cancer with metastatic disease. Routine follow up. Observation of malignant neoplasm. Chemotherapy last month. TECHNIQUE Axial images were obtained through the chest following IV contrast administration. Multiplanar reformats were obtained. This CT exam was performed with one or more of the following radiation dose reduction techniques: automatic exposure control, adjustment of mA and/or kV according to patient size, and iterative reconstruction. COMPARISON STUDIES Comparison made with 04/21. FINDINGS No pericardial effusion. No left-side pleural fluid. Again seen is a large right pleural effusion. It is slightly worsened. Right lower lobe and right middle lobe bronchi are occluded. There is complete consolidation again seen in the right lower lobe with near complete consolidation in the right middle lobe. The patient clearly has tumor involving the right pulmonary hilum and extending into the right lower lobe and mediastinum. Tumor exerts mass effect on the left atrium. It is compressing the right superior pulmonary vein and is occluding the right inferior pulmonary vein. It is difficult to separate tumor from adjacent consolidated lung. Portion of the mass within the mediastinum measures at least 7 cm in AP dimension. It previously measured roughly 7.5 cm. It is directly involving the pericardium and I cannot exclude direct involvement of the intra-atrial septum. The more anterior portion of the tumor measures at least 4.8 cm in width. Tumor may involve portions of the IVC. Tumor is present at the base of the heart to the right of midline STS. [facility] A Service of [facility] RADIOLOGY TEXT RESULTS PATIENT: CLARENCE JEROME LOCATION: [facility] : 55 UNIT #: [id number] AGE: [address]: Ravi Quinn MD SEX: F ORDER DR: measuring at least 5.7 x 6.07 cm. There is a precarinal lymph node measuring about 10 mm short axis. This is relatively stable. Aeration of both lungs overall is improved. There is emphysema. Pleural-based implants in the left lower hemithorax are present. They are certainly worrisome for metastatic disease. These were previously, at least partially obscured by a left pleural fluid and has since resolved. There is a nodule in the lingula measuring 8 mm. It is unclear if this is new or if this was obscured on the prior study. No clearly suspicious osseous lesions. For description of findings in the upper abdomen, please see the abdomen and pelvis CT report dictated separately. IMPRESSION 1. Complex exam. Direct comparison with prior studies is somewhat limited as prior studies were performed without IV contrast. 2. There is a large malignant mass in the right perihilar and infrahilar region extending into the mediastinum. This is compressing the right superior pulmonary vein and is occluding the right inferior pulmonary vein. There is mass effect on the left atrium, and I cannot exclude direct involvement of the intra-atrial septum or portions of the left atrium. Additionally, I cannot exclude some direct involvement of the suprahepatic IVC. The mass measures at least 7 cm in AP dimension which is grossly stable from the prior chest CT. There is still complete consolidation of the right lower lobe. I cannot exclude direct tumor extension into the right lower lobe. There is near complete consolidation of the right middle lobe due to occluded right lower lobe and right middle lobe bronchi. These findings are relatively stable. 3. There is a large right effusion, slightly worsened. 4. Pleural-based implants in the left hemithorax with a lingular nodule. The nodule could be new or could have been obscured on the prior study. Not mentioned above is a left upper lobe nodule measuring about 7 mm in size. This is not clearly identifiable on the prior study, but could also have been obscured by infiltrates. This is certainly worrisome for metastatic disease however. 5. Mild mediastinal adenopathy is stable. 6. For description of findings in the upper abdomen, please see the abdomen and pelvis CT report dictated separately. Dictated by... Cheikh Rojo Jr., M.D. THIS IS AN ELECTRONICALLY VERIFIED REPORT Cheikh Rojo Jr., M.D. at 07/12/2017 8:29 AM PRINCESS/josr TD: 07/11/2017 18:51 JOB #: [id number] [facility] A Service of [facility] RADIOLOGY TEXT RESULTS PATIENT: CLARENCE JEROME LOCATION: [facility] : 55 UNIT #: [id number] AGE: [address]: Ravi Quinn MD SEX: F ORDER DR: MEDICAL IMAGING REPORT Page 1 of 1 COPY
[2017-07-10 11:16] LABS: POC - CREATININE 0.99 mg/dL (0.44-1.03); POC - GFR >60.0 mL/min (>60)
== END | disposition home or self-care (01) ==
LOC: CCAT 09:51
PROVIDERS: Internal Medicine Hematology
DX: C34.01 Malignant neoplasm of right main bronchus (principal); J98.59 Other diseases of mediastinum, not elsewhere classified; J90 Pleural effusion, not elsewhere classified; R59.0 Localized enlarged lymph nodes; R91.8 Other nonspecific abnormal finding of lung field; K76.9 Liver disease, unspecified; J95.89 Other postprocedural complications and disorders of respiratory system, not elsewhere classified; J98.11 Atelectasis; C79.70 Secondary malignant neoplasm of unspecified adrenal gland; C78.7 Secondary malignant neoplasm of liver and intrahepatic bile duct
CPT/HCPCS: 71260; 74177; 82565; Q9967

== ENCOUNTER → 2017-07-20 | Outpatient (CLI) | payer OTHER ==
--- NOTE | ~2017-07-20 | MR83 ---
[facility] A Service of [facility] RADIOLOGY TEXT RESULTS PATIENT: CLARENCE JEROME [facility] 55 UNIT #: [id number] AGE: [address]: Ravi Quinn MD SEX: F ORDER DR: [id number] [facility] [address] [place], [place] [address] [id number] O MR#: [id number] Acc #: [id number] NAME: CLARENCE JEROME : 1955 SEX: F STUDY DATE/TIME: 07/20/2017 18:20 UNIT: [facility] ROOM: STUDY DESCRIPTION: MR Hip Wo Contrast Lt Attending Physician: Ravi Quinn M.D. Referring Physician: Ravi Quinn M.D. Ordering Physician: Ravi Quinn M.D. Primary Care Physician: Cheihk Salguero M.D. MRI CENTER REPORT This report is preliminary unless electronic signature is present. EXAM MRI pelvis and hips without contrast 07/20/[address] abdomen and pelvis 07/10/2017, PET scan 04/20/2017. HISTORY Order states MRI of left hip and femur with and without contrast. Small cell lung cancer. Pain. History sheet states left hip, left buttock and left outer thigh pain for 3 days. No known injury. Stage 4 liver and lung cancer diagnosed 3 months ago. No related surgery. FINDINGS The exam was ordered without and with contrast for both a pelvis/hip study as well as a separate MRI femur exam. The patient was only able to complete 4 of the 8 series for the pelvis protocol (none with contrast). The left femur study was not performed. The technologist reported the patient became to claustrophobic to continue even after taking Ativan. Patient declined further imaging and was noted to have labored breathing. She was contacted the next day and declined to return for any additional imaging. Corresponding with the PET scan abnormality and subtle sclerosis as noted on a CT of 07/10/2017 as a metastatic lesion in the right mid iliac bone measuring 2.9 cm AP. There is minimal adjacent edema in the right iliac fossa but no pathologic fracture or soft tissue mass. This is opposite the reported left-sided symptoms. The remainder of the pelvis, sacrum, and visualized femora show no evidence of metastatic disease. Etiology for the patient's left-sided pain is unclear. [facility] A Service of [facility] RADIOLOGY TEXT RESULTS PATIENT: CLARENCE JEROME LOCATION: [facility] : 55 UNIT #: [id number] AGE: [address]: Ravi Quinn MD SEX: F ORDER DR: Hips show no effusion, fracture, or high-grade arthrosis. Minimal arthritic signal of the superolateral right acetabulum is suspected, again opposite the site of clinical symptoms. The visualized lower lumbar spine is unremarkable. On further review, there is an equivocal subcentimeter metastatic lesion in the anterior superior sacral ala. This is not identified on the CT of 07/10/2017. Edema interposed between the iliotibial tract and greater trochanters bilaterally is slightly more prominent on the left than the right; however, the gluteal tendons are intact. This is not an uncommon finding which is not necessarily symptomatic. There is no greater trochanteric bursal fluid. Correlate for any clinical evidence of greater trochanteric pain syndrome. No internal pelvic pathology or lymphadenopathy is noted. IMPRESSION 1. Only 4 noncontrast sequences of the pelvis and hips were completed. See above discussion. 2. 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 3. Suspected second small subcentimeter metastatic lesion of the right superior S1 sacrum. Both of these findings are opposite to the reported left-sided symptoms. 4. The left hemipelvis and visualized left proximal femur (this exam covers 17-18 cm of the proximal left femur) shows no fracture or evidence of metastatic disease. 5. Inflammation interposed between the greater trochanters and the iliotibial tracts bilaterally is slightly more prominent on the left. It is a nonspecific finding that is not necessarily symptomatic. The adjacent gluteal tendon insertions are normal. Correlate for any clinical evidence of greater trochanteric pain syndrome. 6. The patient was unable to complete the MRI of the pelvis including the postcontrast portion and the MRI of the left femur/thigh was not performed. Patient was reportedly claustrophobic despite Ativan. She was contacted on 07/23/2017 and declined to return for any additional imaging. STAT * [facility] A Service of [facility] RADIOLOGY TEXT RESULTS PATIENT: CLARENCE JEROME LOCATION: [facility] : 55 UNIT #: [id number] AGE: [address]: Ravi Quinn MD SEX: F ORDER DR: Dictated by... Mi Lanza M.D. THIS IS AN ELECTRONICALLY VERIFIED REPORT Mi Lanza M.D. at 07/24/2017 1:40 PM ABDON/margareth TD: 07/24/2017 12:55 JOB #: [id number] MRI CENTER REPORT Page 1 of 1 COPY
[2017-07-20 21:16] LABS: POC - CREATININE 1.04 mg/dL (0.44-1.03)
== END | disposition home or self-care (01) ==
LOC: CMRI 16:28
PROVIDERS: Internal Medicine Hematology
DX: C34.01 Malignant neoplasm of right main bronchus (principal); C79.51 Secondary malignant neoplasm of bone
CPT/HCPCS: 73721; 82565